=== PATIENT | male | born 1980 | race Caucasian/White ===

== ENCOUNTER 2024-03-19 09:14 | Emergency (ER) | payer OTHER, SELFPAY ==
[2024-03-19 09:17] VITALS: BP 140/90
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
[2024-03-19] MEDS: TORADOL 30 MG IM (11:00)
[2024-03-19] MEDS: VALIUM 5 MG PO (12:06)
[2024-03-19 14:02] VITALS: BP 124/78
== END 2024-03-19 14:03 | disposition home or self-care (01) ==
LOC: EMR 09:14
PROVIDERS: EMERGENCY PHYSICIAN Emergency Medicine; FAMILY PHYSICIAN Family Medicine
DX: S39.012A Strain of muscle, fascia and tendon of lower back, initial encounter (principal); X58.XXXA Exposure to other specified factors, initial encounter
CPT/HCPCS: 99284; 96372; 72100